=== PATIENT | male | born 1950 | race Caucasian/White ===

== ENCOUNTER 2017-10-16 09:49 | Inpatient (IN) | payer OTHER ==
--- NOTE | 2017-10-01 14:18 | PAT Medication Instructions ---
Service Date Oct 01, 2017. Current Home Medication List Ascorbic Acid (Vitamin C), 500 MG PO QPM Tbvrtfvdfgk-Gwtfvcxumsn-Xnd C- (Glucosamine Chondroitin), 1 TAB PO QPM Multivitamin (Multivitamin), 1 TAB PO noon Naproxen (Naprosyn), 500 MG PO BID Medication Instructions For Your Scheduled Surgery - Check with surgeon for instructions: Naproxen (Naprosyn), 500 MG PO BID - Hold the following medications 2 weeks prior to surgery: Osbyzdbtyvr-Ybkcvsoqixp-Beg C- (Glucosamine Chondroitin), 1 TAB PO QPM - Hold the following medications the morning of surgery: Multivitamin (Multivitamin), 1 TAB PO noon - Take the following medications as scheduled the night before surgery: Ascorbic Acid (Vitamin C), 500 MG PO QPM If you have any questions please call us at [phone] or [phone] or [phone]
[2017-10-01 15:05] LABS: BASO % 0.7 %; BASO ABS # 0.06 K/uL (0-0.2); COMPLETE YES; EOS % 1.3 %; HEMATOCRIT 43.7 % (42-52); IG% 0.3 %; LYMPH % 27.1 %; LYMPH ABS # 2.33 K/uL (1.2-3.4); MEAN CORPUSCULAR HEMOGLOBIN 30.3 pg (25-34); MEAN CORPUSCULAR HGB CONC 34.1 g/dl (32-36); MONO % 7.6 %; PLATELET COUNT 280 K/uL (130-400); RED BLOOD COUNT 4.91 M/uL (4.7-6.1); WHITE BLOOD COUNT 8.59 K/uL (4.8-10.8)
[2017-10-01 15:12] LABS: BLOOD UREA NITROGEN 15 mg/dl (7-18); BUN/CREATININE RATIO 16.1 (10-20); CALCIUM 9.5 mg/dl (8.5-10.1); CARBON DIOXIDE 26 mmol/L (21-32); CHLORIDE 106 mmol/L (98-107); CREATININE 0.92 mg/dl (0.60-1.40); GLUCOSE 88 mg/dl (70-99); POTASSIUM 4.4 mmol/L (3.5-5.1); SODIUM 139 mmol/L (136-145)
[2017-10-01 15:20] LABS: URINE APPEARANCE CLEAR (CLEAR); URINE BILIRUBIN NEG (NEG); URINE COLOR YELLOW; URINE NITRITE NEG (NEG); URINE SPECIFIC GRAVITY 1.025 (1.000-1.030); UROBILINOGEN NEG (NEG)
[2017-10-01 15:21] LABS: INR 0.9 (0.9-1.1); PARTIAL THROMBOPLASTIN RATIO 0.9
[2017-10-01 15:21] LABS: MANUAL MICROSCOPIC REQUIRED? NO; REVIEW REQ? NO
--- NOTE | 2017-10-14 17:28 | HISTORY & PHYSICAL EXAMINATION ---
DATE OF ADMISSION: 10/16/2017 CHIEF COMPLAINT: Left knee pain. HISTORY OF PRESENT ILLNESS: The patient is a 67-year-old gentleman with known osteoarthritis about his bilateral knees, left worse than right. He has had multiple corticosteroid injections in the past. 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 Due to ongoing pain and disability with activities of daily living, he now desires to proceed with left total knee arthroplasty. PAST MEDICAL HISTORY: Denies. PAST SURGICAL HISTORY: Hernia repair. MEDICATIONS: Naproxen daily. ALLERGIES: AMPICILLIN CAUSES A RASH. SOCIAL HISTORY: He states weekly alcohol use. REVIEW OF SYSTEMS: Noncontributory. PHYSICAL EXAMINATION: GENERAL: Well-nourished, well-developed male who appears his stated age. HEENT: Normocephalic, atraumatic, extraocular movements intact, oropharynx pink and moist. NECK: Supple without adenopathy. LUNGS: Clear to auscultation bilaterally. HEART: Regular rate and rhythm. ABDOMEN: Soft, nontender, nondistended. EXTREMITIES: The upper extremities are within normal limits. The left knee has a slight varus alignment. His range of motion is approximately -10 degrees to 110 degrees. He complains primarily of medial compartment pain. He has crepitus with range of motion. X-RAYS: X-rays were reviewed. He has a varus aligned knee. He has severe tricompartmental disease with near complete loss of the medial joint space. There are large osteophytes about the medial and lateral joint compartments as well as the patellofemoral compartment. ASSESSMENT: Left knee degenerative joint disease. PLAN: Risks versus benefits were discussed, consent was obtained. The patient's primary care physician is Juan Jose Upton MD from [facility]. We will proceed with left total knee arthroplasty as indicated.
[2017-10-16] VITALS (8 sets, daily range): BP systolic 102–150; BP diastolic 60–92; PULSE 86–106; TEMP 36.4–36.7; O2SAT 93–97; Ht 188 cm; Wt 106.4 kg
[~2017-10-16] VITALS: Ht 188 cm; Wt 106.4 kg
--- NOTE | 2017-10-16 07:20 | History & Physical Bridge Note ---
H&P Re-Evaluation Bridge Note: I have examined the patient, reviewed the History & Physical and in the interval since the performance of the History & Physical I have noted the following changes of clinical significance: No changes noted
[~2017-10-16 09:49] MED LIST: ACETAMINOPHEN 500 MG TAB PO SCH; ASCO1CAP3 PO; ATROPINE SULFATE 0.1 MG/ML 5ML SYR IV PRN; BUPIVACAINE 0.25% 30 ML VIAL ONE; BUPIVACAINE 0.5 % 5 MG/1 ML PF 10ML VIAL ONE; CEFAZOLIN 2000MG IV PUSH 10 ML IV SCH; CLINDAMYCIN 600 MG/54 ML D5W 54 ML IV SCH; CeleBREX 200 MG CAP PO SCH; DEXAMETHASONE 4 MG TAB PO SCH; EpHEDrine SULFATE INJ 50 MG/ML AMP IV PRN; FAMOTIDINE 20 MG TAB PO SCH; FENTANYL CITRATE INJ 50 MCG/1 ML 2 ML VIAL IV PRN; GABAPENTIN 300 MG CAP PO SCH; GLUCTAB7 PO; HYDROmorphone INJ 1 MG/ML SYR IV PRN; LABETALOL HCL IV 5 MG/ML 20ML IV PRN; LACTATED RINGER'S 1000ML 1,000 ML IV SCH; LACTATED RINGER'S 1000ML 500 ML IV ONE; LACTATED RINGER'S 1000ML IV SCH; METOCLOPRAMIDE HCL 10 MG TAB PO SCH; MULT-506 PO; NAPR-1169 PO; ONDANSETRON INJ 2 MG/ML 2 ML VIAL IV PRN; PHENYLEPHRINE 100MCG/ML 5ML SYR IV PRN; PROMETHAZINE HCL INJ 12.5 MG in SODIUM CHLORIDE 0.9% 50ML 50 ML IV PRN; ROPIVACAINE 5MG/ML 30 ML 150 MG, BUPIVACAINE 0.5% MPF INJ 30 ML, EpINEphrine HCL INJ 0.... INFIL SCH
[2017-10-16] MEDS ORDERED: MIDAZOLAM HCL 1 MG/ML 2ML VIAL ONE ×2 (11:10→12:53)
[2017-10-16] MEDS ORDERED: ORTHO JOINT ANESTHETIC ONE (11:48)
[2017-10-16] MEDS ORDERED: POVIDONE-IODINE OP SOLN 30 ML BTL ONE (11:49)
[2017-10-16] MEDS ORDERED: BACITRACIN 50000 UNIT VIAL ONE (11:49)
[2017-10-16] MEDS: TRANEXAMIC ACID INJ 1,000 MG in SYRINGE 0 ML IV SCH ×2 (12:10→16:09)
[2017-10-16] MEDS ORDERED: PROPOFOL IV EMULSION 10 MG/ML 20 ML VIAL IV ONE (14:06)
--- NOTE | 2017-10-16 14:23 | OPERATIVE REPORT ---
DATE OF OPERATION: 10/16/2017 PREOPERATIVE DIAGNOSIS: Degenerative joint disease left knee. POSTOPERATIVE DIAGNOSIS: Degenerative joint disease left knee with multiple large loose bodies and incompetence of the medial collateral ligament. PROCEDURE: Constrained right total knee arthroplasty. SURGEON: Dr. aDiley. RESERVE OFFICER: Jono Crockett PA-C. ANESTHESIA: Spinal. COMPLICATIONS: None. OPERATION AND FINDINGS: DESCRIPTION OF PROCEDURE: Following induction of adequate spinal anesthesia, the patient's right leg was prepped and draped in usual sterile manner. Limb was exsanguinated with an Esmarch bandage, tourniquet inflated to 350 mmHg. A longitudinal incision was made anteriorly. Subcutaneous tissue was sharply dissected. Electrocautery was used for hemostasis. Median parapatellar was made. Patella was everted and the knee was flexed. Large osteophytes were noted about the patella. These were removed. Fat pad was removed and the Bovie was used to clear the medial metaphysis of the tibia of soft tissue. The extramedullary alignment guide was placed anteriorly and adjusted and pinned in position. The oscillating saw was used to produce tibial cut. Tibial component was removed. Following this, attention was turned to the femur where a drill was used to gain access to the femoral canal. Intramedullary alignment guide was placed and the distal femoral cuts were made. The femur was measured and a size 7 femoral component was chosen the size to be used. This chamfer cutting guide was impacted in position and the chamfers were cut. There was no notching. These bone fragments were removed and the guide was removed and the notch cutting guide was placed. This bone fragment was removed as well. Next, attention was turned to the posterior aspect of the knee where a lamina contact lens molder was used to gain access and a meniscal clamp and knife were utilized to perform both medial and lateral meniscectomies. Upon removal of posterior bone 3 large osteochondral loose bodies were liberated from the posterior portion of the knee and these were removed. The distal femoral trial was impacted into position and decision was made to drill the peg holes to further stabilize this large femur. Next, the tibia was subluxed anteriorly and a size 7 tibia was chosen the size to be used. The tibia was reduced with a size 9 poly and the medial collateral ligament was noted to be quite lax. The decision was made to place the stem on the tibial component and proceed to a constrained tibial poly. The trials were removed and additional palpation revealed an osseous loose body in the soft tissues medially. These soft tissues were longitudinally split and the loose body was shelled out. The patella was reamed with the appropriate reaming guide and drill holes were placed and a 39 patella was chosen the size to be used. Knee was taken through a full range of motion and there was found to be no subluxation of the patella. The trials were all removed. The posterior knee was injected medially and laterally with the joint mix and bone plug was removed to plug the femoral canal, which was performed. An additional joint mix was injected in the pericapsular area and pulsatile irrigation was used to thoroughly cleanse the joint. Following this, the knee ends were thoroughly dried and cement was mixed and after assembly of the femoral and tibial components the components were cemented into position. All excess cement was removed. The patellar clamp was placed over the patella ____ and cement was removed here as well. After cement hardened, the remainder of the joint mix was injected throughout the joint. A Betadine soak was carried out and a final irrigation was carried out with pulsatile irrigation. Hemovac drain was placed. The wound was closed with 0 Dexon, 2-0 Polysorb and ZipLine. Silverlon dressing was applied as well as sterile Webril and double length Douglas. The patient tolerated the procedure well. Mr. Crockett was essential through all portions of the case including positioning, prepping, draping, compounding assistant, wound closure and dressing application. I attest to the content of the Intraoperative Record and any orders documented therein. Any exception s are noted below.
[2017-10-16] MEDS ORDERED: TRAMADOL HCL 50 MG TAB PO PRN (14:30)
[2017-10-16] MEDS ORDERED: MoRPHine SULFATE 2 MG/ML CARP IV PRN ×2 (14:30→15:00)
[2017-10-16] MEDS ORDERED: ALUMINUM/MAGNESIUM/SIMETH (MAALOX MAX) 30 ML UDC PO PRN (14:30)
[2017-10-16] MEDS ORDERED: BISACODYL 10 MG SUPP PR PRN (14:30)
[2017-10-16] MEDS ORDERED: OXYCODONE HCL IR 5 MG TAB (IMMEDIATE RELEASE) PO PRN (14:30)
[2017-10-16] MEDS ORDERED: ONDANSETRON INJ 2 MG/ML 2 ML VIAL IV PRN (14:30)
[2017-10-16] MEDS ORDERED: MAGNESIUM HYDROXIDE SUSP 30 ML UDC PO PRN (14:30)
[2017-10-16] MEDS ORDERED: CEFAZOLIN IV 2,000 MG in DEXTROSE 5% 50ML 50 ML IV SCH (14:30)
[2017-10-16] MEDS ORDERED: MoRPHine SULFATE 10 MG/ML CARP/VIAL IV PRN (15:00)
[2017-10-16] MEDS ORDERED: MoRPHine SULFATE 4 MG/ML 1 ML CARP\\VIAL IV PRN (15:00)
--- NOTE | 2017-10-16 15:25 | Anesthesiology Progress Note ---
Anesthesia Post Op Note Date & Time Oct 16, 2017 at 15:25 Vital Signs Pain Intensity: 0 Vital Signs Past 12 Hours Date Time Temp Pulse Resp B/P (MAP) Pulse Ox O2 Delivery O2 Flow Rate FiO2 10/16/17 15:16 36.5 119/77 10/16/17 15:15 89 18 10/16/17 15:15 92 18 97 10/16/17 15:10 85 17 10/16/17 15:10 90 17 124/85 96 10/16/17 15:06 114/80 10/16/17 15:05 88 18 96 10/16/17 15:05 88 18 10/16/17 15:01 124/82 10/16/17 15:00 78 13 10/16/17 15:00 87 13 96 10/16/17 14:56 123/83 10/16/17 14:55 85 13 97 10/16/17 14:55 86 13 10/16/17 14:51 124/84 10/16/17 14:50 88 10 97 10/16/17 14:50 79 10 10/16/17 14:46 112/77 10/16/17 14:45 90 17 97 10/16/17 14:45 89 17 10/16/17 14:41 123/82 10/16/17 14:40 88 20 96 10/16/17 14:40 88 20 10/16/17 14:36 129/90 10/16/17 14:35 89 18 96 10/16/17 14:35 86 18 10/16/17 14:31 132/89 10/16/17 14:30 92 17 10/16/17 14:30 93 17 99 10/16/17 14:27 135/86 10/16/17 14:25 36.5 86 16 105/86 99 Oxymask 7 10/16/17 10:20 36.4 101 18 150/92 96 Room Air Notes Mental Status: alert / awake / arousable, participated in evaluation Pt Amnestic to Procedure: Yes Nausea / Vomiting: adequately controlled Pain: adequately controlled Airway Patency, RR, SpO2: stable & adequate BP & HR: stable & adequate Hydration State: stable & adequate Neuraxial Anesthesia: was administered, sensory block is resolving Anesthetic Complications: no major complications apparent
--- NOTE | 2017-10-16 15:33 | DIAGNOSTIC IMAGING REPORT ---
L KNEE 1 OR 2 VIEWS ROUTINE HISTORY: 67 years-old Male s/p TKA status post right knee total joint arthroplasty. Degenerative joint disease. COMPARISON: None available TECHNIQUE: 2 views of the left knee FINDINGS: Postoperative changes compatible with placement of a hinged left knee total joint arthroplasty. Small bone fragments are noted about the knee both medially and laterally. Dystrophic appearing calcifications seen within the region of the distal quadriceps tendon. Prior patellar resurfacing. Expected postsurgical soft tissue swelling and deep tissue air about the knee with drainage in place. No complications identified. IMPRESSION: Status post left knee total joint arthroplasty and patellar resurfacing without complication identified. The above report was generated using voice recognition software. It may contain grammatical, syntax or spelling errors. Electronically signed by: Fahad Burris M.D. 10/16/2017 3:32 PM Dictated Date/Time: 10/16/2017 3:23 PM
[2017-10-16] MEDS: KETOROLAC TROMETHAMINE 30 MG/ML VIAL IV. SCH ×2 (16:46→22:11)
[2017-10-16] MEDS: FERROUS GLUCONATE 324 MG TAB PO SCH (17:47)
[2017-10-16] MEDS: D5W AND 1/2NSS + 20MEQ KCL 1,000 ML IV SCH (20:28)
[2017-10-16] MEDS: CEFAZOLIN IV 2,000 MG in SYRINGE 0 ML IV SCH (20:28)
[2017-10-16] MEDS: DOCUSATE SODIUM 100 MG CAP PO SCH (20:34)
[2017-10-16] MEDS: SENNA 8.6 MG TAB PO SCH (20:35)
[2017-10-16] MEDS: ASPIRIN 81 MG ECTAB PO SCH (20:36)
[2017-10-16] MEDS: ACETAMINOPHEN 500 MG TAB PO SCH (22:11)
[2017-10-17] MEDS: D5W AND 1/2NSS + 20MEQ KCL 1,000 ML IV SCH (01:50)
[2017-10-17 03:40] VITALS: BP 113/74; PULSE 84; TEMP 36.6; O2SAT 96
[2017-10-17] MEDS: CEFAZOLIN IV 2,000 MG in SYRINGE 0 ML IV SCH (03:59)
[2017-10-17] MEDS: KETOROLAC TROMETHAMINE 30 MG/ML VIAL IV. SCH ×2 (04:00→10:00)
[2017-10-17] MEDS: ACETAMINOPHEN 500 MG TAB PO SCH ×3 (05:44→20:44)
[2017-10-17 06:22] LABS: HEMATOCRIT 38.1 % (42-52); MEAN CELL VOLUME 89.6 fL (80-100); MEAN CORPUSCULAR HEMOGLOBIN 28.7 pg (25-34); MEAN PLATELET VOLUME 9.6 fL (7.4-10.4); PLATELET COUNT 266 K/uL (130-400); RED BLOOD COUNT 4.25 M/uL (4.7-6.1); WHITE BLOOD COUNT 19.05 K/uL (4.8-10.8)
[2017-10-17 07:00] LABS: CALCIUM 8.6 mg/dl (8.5-10.1); CREATININE 1.12 mg/dl (0.60-1.40); POTASSIUM 4.2 mmol/L (3.5-5.1)
--- NOTE | 2017-10-17 07:45 | Orthopedic Progress Note ---
Orthopedic Progress Note Date of Service Oct 17, 2017. Subjective Post OP Day: 1 Reports: feeling well Objective N/V intact, dressing C/D/I (Hemovac in place), toes mobile Date Time Temp Pulse Resp B/P (MAP) Pulse Ox O2 Delivery O2 Flow Rate FiO2 10/17/17 03:40 36.6 84 16 113/74 (87) 96 Room Air 10/16/17 23:15 Room Air 10/16/17 23:07 36.6 86 16 102/60 (74) 96 Room Air 10/16/17 21:31 95 Room Air 10/16/17 19:06 36.4 98 18 111/74 (86) 97 Nasal Cannula 2.0 10/16/17 17:39 36.7 103 18 118/75 (89) 96 Nasal Cannula 2.0 10/16/17 16:31 36.5 106 18 130/78 (95) 97 Nasal Cannula 2.0 10/16/17 16:00 36.4 93 18 115/74 (88) 96 Nasal Cannula 2.0 10/16/17 16:00 Nasal Cannula 2.0 10/16/17 15:30 Nasal Cannula 2.0 Oxymask 10/16/17 15:30 36.7 91 16 132/83 (99) 93 Room Air 10/16/17 15:16 36.5 119/77 10/16/17 15:15 89 18 10/16/17 15:15 92 18 97 10/16/17 15:10 85 17 10/16/17 15:10 90 17 124/85 96 10/16/17 15:06 114/80 10/16/17 15:05 88 18 96 10/16/17 15:05 88 18 10/16/17 15:01 124/82 10/16/17 15:00 78 13 10/16/17 15:00 87 13 96 10/16/17 14:56 123/83 10/16/17 14:55 85 13 97 10/16/17 14:55 86 13 10/16/17 14:51 124/84 10/16/17 14:50 88 10 97 10/16/17 14:50 79 10 10/16/17 14:46 112/77 10/16/17 14:45 90 17 97 10/16/17 14:45 89 17 10/16/17 14:41 123/82 10/16/17 14:40 88 20 96 10/16/17 14:40 88 20 10/16/17 14:36 129/90 10/16/17 14:35 89 18 96 10/16/17 14:35 86 18 10/16/17 14:31 132/89 10/16/17 14:30 92 17 10/16/17 14:30 93 17 99 10/16/17 14:27 135/86 10/16/17 14:25 36.5 86 16 105/86 99 Oxymask 7 10/16/17 10:20 36.4 101 18 150/92 96 Room Air Laboratory Results 24 Hours: Test 10/17/17 06:00 Hematocrit 38.1 % Hemoglobin 12.2 g/dL Assessment & Plan Assessment: 67 yo male stable POD #1 s/p left TKA Plan: 1. Med management 2. DVT prophylaxis- ASA, SCDs 3. PT/OT 4. D/C planning- home w/ OPPT
[2017-10-17] MEDS ORDERED: ASPEC81 PO (07:47)
[2017-10-17] MEDS ORDERED: RXC5 PO (07:47)
[2017-10-17] MEDS ORDERED: ONDA8TAB12 PO (07:47)
[2017-10-17] MEDS ORDERED: CLB200 PO (07:47)
[2017-10-17] MEDS ORDERED: ACET-24 PO (07:47)
--- NOTE | 2017-10-17 07:48 | Discharge Instructions ---
Discharge Instructions Date of Service Oct 17, 2017. Admission Reason for Admission: Left Knee Osteoarthritis Discharge Discharge Diagnosis / Problem: Left knee arthritis Discharge Goals Goal(s): Decrease discomfort, Improve function Activity Recommendations Activity Limitations: as noted below Weightbearing Status: Left weightbearing (as tolerated) . Instructions / Follow-Up Instructions / Follow-Up ACTIVITY RECOMMENDATIONS: SELF CARE INSTRUCTIONS AFTER TOTAL KNEE REPLACEMENT A. You may need to continue a physical therapy program after discharge from the hospital. There are several options available to you. Your doctor will assist you in selecting the best one for you. 1. An out-patient facility 2 to 3 times a week for therapy or home therapy. 2. Continue working on all exercises taught to you in the hospital. Your goals should be to increase bending of your knee to 90 degrees and beyond and to fully straighten your knee. B. You may progress at your own pace from walking with a walker or crutches to a cane; then to no assistive devices. C. Make walking a part of your daily routine. Be up as much as comfortable with rest periods throughout the day. Rest with leg elevation is very important. Use the ice wrap frequently for the first 3-4 weeks. D. There are no restrictions on activities. You may ride in a car, shop, participate in client liaison and all social activities. E. Wear the long elastic stockings (RADHA hose) 20 hours a day for 2 weeks after surgery. They can be removed several times a day for laundering and for a bath. F. You may shower, no tub baths until cleared by your doctor. SPECIAL CARE INSTRUCTIONS: VERY IMPORTANT TO READ AND REVIEW A. There are a few signs you need to watch for after you are home. Call [facility] if you notice any of the followin. Increased severe knee pain. Some pain is expected especially when you exercise. 2. Increased swelling in your leg or knee; pain or swelling of the calf muscle in either lower leg. 3. Any fluid drainage from the incision. 4. Shortness of breath or chest pain. B. Please call [facility] at if you have any concerns or questions about your operation or recovery. The doctor or his nurse will return your call promptly. C. You must take antibiotics before dental work, bladder, bowel or other surgery. Your doctor will provide you with a permanent care to carry describing this precaution. IMPORTANT: * REMEMBER TO TAKE ASPIRIN, 81 MG, TWICE DAILY FOR 4 WEEKS UNLESS OTHERWISE DIRECTED. THIS IS YOUR BLOOD THINNER. * HIGH RISK PATIENTS MAY BE PRESCRIBED A STRONGER BLOOD THINNER. THIS WILL BE PROVIDED AT DISCHARGE. * CALL IF INCREASED PAIN, REDNESS, DRAINAGE OR FEVER GREATER THAT 101. * WEAR RADHA HOSE 20 HOURS PER DAY FOR 2 WEEKS. Silverlon- This is a large adhesive bandage that contains silver ions. This helps your incision heal by fighting off bacteria and protecting it from the outside environment. You are permitted to shower with this dressing. This will remain on your incision for 7 days and then should be removed. Some visible blood or drainage through the dressing window is normal. If there is significant drainage or leaking noted before the 7 days notify your doctor's office immediately. Once removed, keep incision clean and dry. If there is any drainage or redness noted, please call your surgeon. FOLLOW UP VISIT: If appointment is not already scheduled: Please call [facility] to make a follow-up appointment for 2 weeks after your surgery at . Current Hospital Diet Patient's current hospital diet: Regular Diet Discharge Diet Recommended Diet: Regular Diet Procedures Procedures Performed: Left Total Knee Arthroplasty Pending Studies Studies pending at discharge: no Medical Emergencies . Who to Call and When: Medical Emergencies: If at any time you feel your situation is an emergency, please call 911 immediately. . Non-Emergent Contact Non-Emergency issues call your: Surgeon Call Non-Emergent contact if: temperature is above 101.5, your pain is not controlled, wound has increased drainage, wound has increased redness . "Provider Documentation" section prepared by Young Young PA-C. . VTE Core Measure Inpt VTE Proph given/why not?: Other Anticoagulation (ASA), T.E.D. Stockings, SCD's [place] Drug Monitoring Program Search Results: patient reviewed within database, no issues identified
[2017-10-17 08:03] VITALS: BP 130/90; PULSE 78; TEMP 36.6; O2SAT 98
[2017-10-17] MEDS: FERROUS GLUCONATE 324 MG TAB PO SCH ×3 (08:32→18:00)
[2017-10-17] MEDS: ASPIRIN 81 MG ECTAB PO SCH ×2 (08:32→20:41)
[2017-10-17] MEDS: PANTOprazole SOD 40 MG TAB PO SCH (08:32)
[2017-10-17] MEDS: MULTIVITAMIN TAB PO SCH (08:33)
[2017-10-17] MEDS: DOCUSATE SODIUM 100 MG CAP PO SCH ×2 (08:33→20:42)
[2017-10-17 09:35] VITALS: O2SAT 98
[2017-10-17 12:03] VITALS: BP 130/70; PULSE 72; TEMP 36.7; O2SAT 98
[2017-10-17 15:29] VITALS: BP 130/84; PULSE 77; TEMP 36.5; O2SAT 97
[2017-10-17] MEDS: SENNA 8.6 MG TAB PO SCH (20:42)
[2017-10-17] MEDS: CeleBREX 200 MG CAP PO SCH (20:43)
[2017-10-17 23:18] VITALS: BP 127/64; PULSE 82; TEMP 36.8; O2SAT 98
[2017-10-18] MEDS: ACETAMINOPHEN 500 MG TAB PO SCH (05:41)
[2017-10-18 06:07] VITALS: BP 146/80; PULSE 88; TEMP 36.7; O2SAT 99
[2017-10-18] MEDS: FERROUS GLUCONATE 324 MG TAB PO SCH (07:52)
[2017-10-18] MEDS: PANTOprazole SOD 40 MG TAB PO SCH (07:52)
[2017-10-18] MEDS: ASPIRIN 81 MG ECTAB PO SCH (07:52)
[2017-10-18] MEDS: CeleBREX 200 MG CAP PO SCH (07:52)
[2017-10-18] MEDS: MULTIVITAMIN TAB PO SCH (07:52)
[2017-10-18] MEDS: DOCUSATE SODIUM 100 MG CAP PO SCH (07:52)
--- NOTE | 2017-10-18 08:00 | Orthopedic Progress Note ---
Orthopedic Progress Note Date of Service Oct 18, 2017. Subjective Post OP Day: 2 Reports: feeling well, Denies: chest pain, SOB, nausea / vomiting, light headedness, calf pain Objective calves soft nontender, N/V intact, capillary refill less than 2 sec., incision C /D/I, A&O x3, toes mobile Date Time Temp Pulse Resp B/P (MAP) Pulse Ox O2 Delivery O2 Flow Rate FiO2 10/18/17 06:07 36.7 88 16 146/80 (102) 99 Room Air 10/18/17 00:10 Room Air 10/17/17 23:18 36.8 82 20 127/64 (85) 98 Room Air 10/17/17 15:35 Room Air 10/17/17 15:29 36.5 77 16 130/84 (99) 97 Room Air 10/17/17 12:03 36.7 72 14 130/70 (90) 98 Room Air 10/17/17 09:35 98 Room Air 10/17/17 08:03 36.6 78 12 130/90 (103) 98 Room Air Assessment & Plan Assessment: 67 yo male stable POD #2 s/p left TKA Plan: 1. Med management 2. DVT prophylaxis- ASA, SCDs 3. PT/OT 4. D/C planning- home w/ OPPT. DC HOME TODAY AFTER PT
[2017-10-18 09:41] VITALS: BP 146/80; PULSE 88; TEMP 36.7; O2SAT 99
--- NOTE | 2017-10-20 13:51 | DISCHARGE SUMMARY ---
DISCHARGE DIAGNOSIS: Degenerative joint disease left knee. CONSULTATIONS: None. COMPLICATIONS: None. PROCEDURES: Left total knee arthroplasty performed by Dr. Dailey on 10/16/2017. BRIEF HISTORY: As dictated in history and physical. HOSPITAL SUMMARY: The patient was admitted on the above-noted date and had the above-noted surgery performed which he tolerated well. On the first postoperative day, he was feeling well and had no complaints. Dressings were clean, dry and intact. Neurovascularly intact. Toes were mobile. Vital signs were stable. He was afebrile. Hemoglobin was 12.2 and he was started on physical therapy protocol and continued on DVT prophylaxis and pain management. By his second postoperative day, he was feeling well and had no complaints. Calves were soft and nontender, neurovascularly intact. Incision was benign. Toes were mobile. Vital signs were stable and it was felt he could be discharged to home with outpatient PT. For further review, please see chart. LABORATORY AND X-RAY DATA: As per chart. DISCHARGE INSTRUCTIONS: The patient was discharged to home on 10/18/2017 in stable condition. DIET: Regular. ACTIVITY: Weightbearing as tolerated left lower extremity. Follow TK instruction sheets and special care instructions as noted. Follow up with Dr. Dailey in 2 weeks. The patient to call for appointment if one has not been made for you. DISCHARGE MEDICATIONS: Acetaminophen 1000 mg p.o. q. 8 hours, aspirin 81 mg p.o. b.i.d., Celebrex 200 mg p.o. b.i.d., Zofran 8 mg p.o. q. 8 hours p.r.n., oxycodone 5-10 mg p.o. q. 4 hours p.r.n. Resume home meds as listed in discharge instructions and stop taking naproxen.
== END 2017-10-18 11:17 | disposition home or self-care (01) | DRG 470 ==
LOC: C.ACU 09:49 → C.3E 12:07 → ENRESERV 15:08
PROC: 0SRU0J9 Replacement of Left Knee Joint, Femoral Surface with Synthetic Substitute, Cemented, Open Approach (ICD-10-PCS; principal; 2017-10-16 12:45)
DX: M17.12 Unilateral primary osteoarthritis, left knee (principal)

== ENCOUNTER 2018-01-08 07:33 | Inpatient (IN) | payer OTHER ==
[2017-11-26 11:45] VITALS: BMI 29.0
--- NOTE | 2017-11-26 12:19 | PAT Medication Instructions ---
Service Date Nov 26, 2017. Current Home Medication List Ascorbic Acid (Vitamin C), 500 MG PO QPM Multivitamin (Multivitamin), 1 TAB PO noon Naproxen (Naprosyn), Unknown Dose PO BID Medication Instructions For Your Scheduled Surgery - Check with surgeon for instructions: Naproxen (Naprosyn), Unknown Dose PO BID - Hold the following medications the morning of surgery: Multivitamin (Multivitamin), 1 TAB PO noon - Take the following medications as scheduled the night before surgery: Ascorbic Acid (Vitamin C), 500 MG PO QPM If you have any questions please call us at [phone] or [phone] or [phone]
[2017-11-26 12:41] LABS: BASO % 0.5 %; BASO ABS # 0.05 K/uL (0-0.2); EOS % 1.3 %; EOS ABS # 0.12 K/uL (0-0.5); HEMATOCRIT 42.1 % (42-52); HEMOGLOBIN 13.5 g/dL (14.0-18.0); IG# 0.03 K/uL (0.00-0.02); LYMPH % 19.7 %; LYMPH ABS # 1.81 K/uL (1.2-3.4); MEAN CORPUSCULAR HEMOGLOBIN 28.5 pg (25-34); MEAN CORPUSCULAR HGB CONC 32.1 g/dl (32-36); MEAN PLATELET VOLUME 9.8 fL (7.4-10.4); MONO ABS # 0.74 K/uL (0.11-0.59); NEUT % 70.2 %; NEUT ABS # 6.45 K/uL (1.4-6.5); PLATELET COUNT 341 K/uL (130-400); RED CELL DISTRIBUTION WIDTH SD 46.1 fL (36.4-46.3)
[2017-11-26 12:52] LABS: PTT PATIENT 24.5 SECONDS (21.0-31.0)
--- NOTE | 2017-11-26 13:11 | DIAGNOSTIC IMAGING REPORT ---
CHEST 2 VIEWS ROUTINE HISTORY: Preop. COMPARISON: None. FINDINGS: The lungs are clear. Cardiac silhouette is normal in size. No pleural effusions. No pneumothorax. Old, healed left clavicle fracture. IMPRESSION: No acute process. Electronically signed by: Yariel Newton M.D. 11/26/2017 1:09 PM Dictated Date/Time: 11/26/2017 1:04 PM
[2017-11-26 13:15] LABS: HEMOGLOBIN A1C 4.9 % (4.5-5.6)
[2017-11-26 14:19] LABS: ALBUMIN 3.6 gm/dl (3.4-5.0); CALCIUM 9.1 mg/dl (8.5-10.1); CREATININE 0.93 mg/dl (0.60-1.40); POTASSIUM 4.4 mmol/L (3.5-5.1)
--- NOTE | 2017-12-17 10:51 | HISTORY & PHYSICAL EXAMINATION ---
DATE OF ADMISSION: 01/08/2018 CHIEF COMPLAINT: Right knee pain. HISTORY OF PRESENT ILLNESS: Mr. Terrell is a 67-year-old male with a 15-year history of right knee pain. The patient rates his pain as 7/10. He has pain with his daily activities. He has limited standing and walking tolerance. Pain is worse with weightbearing. The patient has had injections, bracing, NSAIDs and PT without relief. He has failed conservative treatment and is scheduled for right knee replacement. PAST MEDICAL HISTORY: Denies heart disease, diabetes or DVT. PAST SURGICAL HISTORY: Left TKA. SOCIAL HISTORY: The patient drinks 4-5 drinks per week. He denies tobacco use. He lives in a single story home. He is and retired. FAMILY HISTORY: Negative for DVT. MEDICATIONS: Multivitamin, vitamin C, glucosamine chondroitin and naproxen. ALLERGIES: AMPICILLIN CAUSES HIVES. REVIEW OF SYSTEMS: See HPI. Ten other systems reviewed, all negative. PHYSICAL EXAMINATION: VITAL SIGNS: Height 6 foot 2 inches, weight 230 pounds. BMI is 30. GENERAL: This is a well-developed, well-nourished male who is alert and oriented x3. Mood and affect are appropriate. HEENT: Normocephalic, atraumatic. Mucous membranes are moist and intact. NECK: Supple without lymphadenopathy. HEART: Regular rate and rhythm without murmurs, rubs or gallops. LUNGS: Clear to auscultation without wheezes or rhonchi. ABDOMEN: Soft and nontender. Bowel sounds are equal and active. EXTREMITIES: No ecchymosis, redness or warmth. Thigh and calf are soft and nontender. He has varus deformity. Range of motion is from 10 to about 115 degrees. He has +2 laxity. He is neurovascularly intact. He has no distal edema. X-RAY EXAMINATION: AP and lateral views show joint space narrowing and osteophyte formation. IMPRESSION: Degenerative joint disease, right knee. PLAN: The patient will be admitted for a right total knee arthroplasty. We will plan on aspirin for DVT prophylaxis. The patient is going to do outpatient physical therapy at [facility].
[~2018-01-08] VITALS: Ht 188 cm; Wt 104.7 kg
[2018-01-08] VITALS (8 sets, daily range): BP systolic 109–158; BP diastolic 67–99; PULSE 94–108; TEMP 36.4–37; O2SAT 93–98; Ht 188 cm; Wt 104.7 kg
[2018-01-08] MEDS: TRANEXAMIC ACID INJ 1,000 MG in SYRINGE 0 ML IV SCH ×2 (06:30→09:08)
[~2018-01-08 07:33] MED LIST changes: -ATROPINE SULFATE 0.1 MG/ML 5ML SYR IV PRN; -CEFAZOLIN 2000MG IV PUSH 10 ML IV SCH; +CEFAZOLIN 2000MG IV PUSH 15 ML IV SCH; -CLINDAMYCIN 600 MG/54 ML D5W 54 ML IV SCH; -EpHEDrine SULFATE INJ 50 MG/ML AMP IV PRN; -FENTANYL CITRATE INJ 50 MCG/1 ML 2 ML VIAL IV PRN; -GLUCTAB7 PO; -HYDROmorphone INJ 1 MG/ML SYR IV PRN; -LABETALOL HCL IV 5 MG/ML 20ML IV PRN; -LACTATED RINGER'S 1000ML 500 ML IV ONE; +LACTATED RINGER'S 1000ML 500 ML IV SCH; -NAPR-1169 PO; +NAPR1TAB48 PO; -ONDANSETRON INJ 2 MG/ML 2 ML VIAL IV PRN; -PHENYLEPHRINE 100MCG/ML 5ML SYR IV PRN; -PROMETHAZINE HCL INJ 12.5 MG in SODIUM CHLORIDE 0.9% 50ML 50 ML IV PRN
[2018-01-08] MEDS ORDERED: MIDAZOLAM HCL 1 MG/ML 2ML VIAL ONE (07:40)
[2018-01-08] MEDS ORDERED: FENTANYL CITRATE INJ 50 MCG/1 ML 2 ML VIAL ONE (07:40)
[2018-01-08] MEDS ORDERED: EpHEDrine SULFATE 50MG/5ML SYR ONE (07:49)
[2018-01-08] MEDS ORDERED: PROPOFOL IV EMULSION 10 MG/ML 20 ML VIAL IV ONE (07:49)
[2018-01-08] MEDS ORDERED: LIDOCAINE HCL 2% 2 ML VIAL (20MG/ML) ONE (07:49)
[2018-01-08] MEDS ORDERED: PHENYLEPHRINE 100MCG/ML 5ML SYR ONE (07:49)
[2018-01-08] MEDS ORDERED: NAPR-1169 PO (07:54)
[2018-01-08] MEDS ORDERED: ONDANSETRON INJ 2 MG/ML 2 ML VIAL IV PRN ×2 (08:30→11:15)
[2018-01-08] MEDS ORDERED: ATROPINE SULFATE 0.1 MG/ML 5ML SYR IV PRN (08:30)
[2018-01-08] MEDS ORDERED: EpHEDrine SULFATE INJ 50 MG/ML AMP IV PRN (08:30)
[2018-01-08] MEDS ORDERED: FENTANYL CITRATE INJ 50 MCG/1 ML 2 ML VIAL IV PRN (08:30)
[2018-01-08] MEDS ORDERED: ORTHO JOINT ANESTHETIC ONE (08:58)
[2018-01-08] MEDS ORDERED: POVIDONE-IODINE OP SOLN 30 ML BTL ONE (08:58)
[2018-01-08] MEDS ORDERED: BACITRACIN 50000 UNIT VIAL ONE (08:58)
--- NOTE | 2018-01-08 10:35 | [facility] Post Operative Brief Note ---
Immediate Operative Summary Operative Date Jan 08, 2018. Pre-Operative Diagnosis Degenerative Joint Disease, right knee Post-Operative Diagnosis Degenerative Joint Disease, right knee Procedure(s) Performed Right Total Knee Arthroplasty Surgeon Dr. Elan Dailey Automobile Mechanic Apprentice Surgeon(s) Young Young PA-C Estimated Blood Loss 10mL Findings Consistent with Post-Op Diagnosis Specimens Permanent: A. Right Knee Bone and Tissue Anesthesia Type MAC Spinal Regional Complication(s) none Disposition Accompanied Pt To Recover: no Disposition: Recovery Room / PACU
--- NOTE | 2018-01-08 10:50 | OPERATIVE REPORT ---
DATE OF OPERATION: 01/08/2018 PREOPERATIVE DIAGNOSIS: Osteoarthritis right knee. POSTOPERATIVE DIAGNOSIS: Osteoarthritis right knee. PROCEDURE: Right total knee arthroplasty. SURGEON: Dr. Dailey. INVESTMENT SPECIALIST: Young Young PA-C. ANESTHESIA: Spinal. COMPLICATIONS: None. OPERATION AND FINDINGS: Following induction of spinal anesthesia, the patient's right leg was prepped and draped in the usual sterile manner. Limb was exsanguinated with an Esmarch bandage and tourniquet was inflated to 350 mmHg. A longitudinal incision was made anteriorly. Subcutaneous tissue was sharply dissected. Electrocautery was used for hemostasis. Prepatellar bursa was incised and median parapatellar incision was performed. Patella was everted and the knee was flexed. Fat pad was removed to aid in visualization and the anterior and posterior cruciate ligaments were removed. The medial face of the tibia was cleared of soft tissue first with a Bovie and a Eisenberg elevator. This tissue was retracted posteriorly using a blunt Hohmann. A Em retractor was used to expose the synovium above on the anterior aspect of the femur and this was removed down to bone. The PSI guide was placed on the distal femur and two pins were placed anteriorly and kept in position and two additional pins were placed distally and removed. The distal femoral cutting block was placed in position and the distal femoral cut was used in the +0 setting. Next, the cutting block was removed and the 7 block was placed in the distal end of the femur. Care was taken to ensure appropriate external rotation and feeler gauge was used to ensure no notching would occur. The femoral block was centered on the distal femur and in the medial and lateral direction and was fixed using two bone screws. The gold pins were then removed. The oscillating saw was used to create the bone cuts and the distal femoral cutting block was removed and the reciprocating saw was used to further trim the femoral cuts as well as a deep in the area for the trochlear groove. Next, posterior condyle remnants were removed. Following this, a meniscal clamp and knife were utilized to remove the anterior portion of both medial and lateral meniscus. The proximal tibia PSI guide was placed into position and the proximal tibial cutting guide was screwed into position. The extra medullary alignment guide was utilized to ensure appropriate alignment. The proximal tibia was cut and the proximal tibial cutting block was removed and this bone fragment was removed. The appropriate guide was used to perform the notch cut on the distal femur and a lamina compliance monitor and a cochlear knife were utilized to finish both medial and lateral meniscectomies to remove any remnants of the posterior or anterior cruciate ligaments. Following this, the distal femoral component was impacted into position and blunt Kalyan was used to sublux the tibia anteriorly. The proximal tibia was sized and a 6 tibial tray was chosen as the size to be used. This was put into position and appropriate external rotation and a double check with extramedullary alignment guide was performed. The canal for the tibial stem was prepared first with a 17 mm drill and then the punch and a mallet and the trial tibial poly was placed. A 9 was chosen the size to be used. It was brought to extension and the patella was prepared with the patellar reamer. A 39 component was chosen the size to be used. The trial component was placed and knee was taken through a full range of motion and there was found to be no lateral subluxation of the tibia. No lateral release was required. The trials were all removed. The final components were obtained and assembled. Cement was mixed. The knee was thoroughly irrigated and the ortho mix was injected about the knee joint. The final components were cemented into position. After thoroughly suctioning and drying the bone ends, all excess cement was removed. The knee was held in extension while the cement hardened. The wound was irrigated and closed over a Hemovac drain. #1 Vicryl was used to close the extensor mechanism. Subcutaneous tissues closed using 0 Dexon. Skin was closed with josiane. Sterile dressing of Adaptic, 4 x 4's, sterile Webril, and Douglas was applied. The patient tolerated the procedure well, recovery room stable. Due to the complex nature of the procedure, the entire surgery was performed with the operational assistance of Young Young PA-C. The branch assistant, under direct supervision, was involved in the actual performance of all aspects of the surgical procedure including hemostasis, tissue retraction and incision, instrument management, patient positioning, and wound closure. I attest to the content of the Intraoperative Record and any orders documented therein. Any exception s are noted below.
[2018-01-08] MEDS ORDERED: ZOLPIDEM TARTRATE 5 MG TAB PO PRN (11:15)
[2018-01-08] MEDS ORDERED: MoRPHine SULFATE 2 MG/ML CARP IV PRN (11:15)
[2018-01-08] MEDS ORDERED: ALUMINUM/MAGNESIUM/SIMETH (MAALOX MAX) 30 ML UDC PO PRN (11:15)
[2018-01-08] MEDS ORDERED: METOCLOPRAMIDE HCL INJ 5 MG/ML 2 ML VIAL IV PRN (11:15)
[2018-01-08] MEDS ORDERED: OXYCODONE HCL IR 5 MG TAB (IMMEDIATE RELEASE) PO PRN (11:15)
[2018-01-08] MEDS ORDERED: MAGNESIUM HYDROXIDE SUSP 30 ML UDC PO PRN (11:15)
--- NOTE | 2018-01-08 11:40 | DIAGNOSTIC IMAGING REPORT ---
RIGHT KNEE 2 VIEWS CLINICAL HISTORY: Degenerative arthritis. Postoperative study. COMPARISON: None. DISCUSSION: There are postsurgical changes of a total right knee arthroplasty and patellar resurfacing. The femoral and tibial components appear well seated. There is air within soft tissues consistent with recent surgery. There is an overlying surgical drain. IMPRESSION: Postsurgical changes of a total right knee arthroplasty. Electronically signed by: Jc Bazan M.D. 01/08/2018 11:38 AM Dictated Date/Time: 01/08/2018 11:38 AM
--- NOTE | 2018-01-08 12:08 | Anesthesiology Progress Note ---
Anesthesia Post Op Note Date & Time Jan 08, 2018 at 12:08 Vital Signs Pain Intensity: 0 Vital Signs Past 12 Hours Date Time Temp Pulse Resp B/P (MAP) Pulse Ox O2 Delivery O2 Flow Rate FiO2 01/08/18 11:55 36.6 87 16 119/72 97 Nasal Cannula 2 01/08/18 11:45 89 16 118/80 94 Nasal Cannula 2 01/08/18 11:35 90 16 128/81 94 Nasal Cannula 2 01/08/18 11:25 87 16 126/79 98 Oxymask 10 01/08/18 11:16 36.8 91 16 132/82 99 Oxymask 10 01/08/18 07:50 36.7 100 18 158/99 96 Room Air Notes Mental Status: alert / awake / arousable, participated in evaluation Pt Amnestic to Procedure: Yes Nausea / Vomiting: adequately controlled Pain: adequately controlled Airway Patency, RR, SpO2: stable & adequate BP & HR: stable & adequate Hydration State: stable & adequate Neuraxial Anesthesia: was administered, sensory block is resolving Anesthetic Complications: no major complications apparent
[2018-01-08] MEDS: D5W AND 1/2NSS + 20MEQ KCL 1,000 ML IV SCH ×2 (13:44→23:08)
[2018-01-08] MEDS: KETOROLAC TROMETHAMINE 15 MG/ML VIAL IV. SCH ×2 (13:46→20:03)
[2018-01-08] MEDS: ACETAMINOPHEN 500 MG TAB PO SCH (15:46)
[2018-01-08] MEDS: FERROUS GLUCONATE 324 MG TAB PO SCH (17:42)
[2018-01-08] MEDS: CEFAZOLIN IV 2,000 MG in SYRINGE 0 ML IV SCH (18:18)
[2018-01-08] MEDS: DOCUSATE SODIUM 100 MG CAP PO SCH (20:51)
[2018-01-08] MEDS: ASPIRIN 81 MG ECTAB PO SCH (20:51)
[2018-01-09] VITALS (7 sets, daily range): BP systolic 119–152; BP diastolic 74–87; PULSE 80–100; TEMP 36.5–36.7; O2SAT 93–97
[2018-01-09] MEDS: ACETAMINOPHEN 500 MG TAB PO SCH ×4 (00:17→23:27)
[2018-01-09] MEDS: KETOROLAC TROMETHAMINE 15 MG/ML VIAL IV. SCH ×2 (02:35→08:20)
[2018-01-09] MEDS: CEFAZOLIN IV 2,000 MG in SYRINGE 0 ML IV SCH (02:35)
[2018-01-09 07:18] LABS: HEMATOCRIT 33.2 % (42-52); HEMOGLOBIN 10.9 g/dL (14.0-18.0); MEAN CELL VOLUME 86.5 fL (80-100); MEAN CORPUSCULAR HEMOGLOBIN 28.4 pg (25-34); MEAN CORPUSCULAR HGB CONC 32.8 g/dl (32-36); MEAN PLATELET VOLUME 9.7 fL (7.4-10.4); PLATELET COUNT 215 K/uL (130-400); RED CELL DISTRIBUTION WIDTH CV 15.3 % (11.5-14.5); WHITE BLOOD COUNT 19.24 K/uL (4.8-10.8)
[2018-01-09] MEDS ORDERED: DEXAMETHASONE INJ 10 MG in SYRINGE 0 ML IV SCH (07:30)
[2018-01-09 07:39] LABS: CALCIUM 8.3 mg/dl (8.5-10.1); CREATININE 1.1 mg/dl (0.60-1.40); POTASSIUM 4.2 mmol/L (3.5-5.1)
[2018-01-09] MEDS: PANTOprazole SOD 40 MG TAB PO SCH (08:21)
[2018-01-09] MEDS: MULTIVITAMIN TAB PO SCH (08:22)
[2018-01-09] MEDS: DOCUSATE SODIUM 100 MG CAP PO SCH ×2 (08:22→21:18)
[2018-01-09] MEDS: ASPIRIN 81 MG ECTAB PO SCH ×2 (08:22→21:18)
[2018-01-09] MEDS: FERROUS GLUCONATE 324 MG TAB PO SCH ×3 (08:22→17:50)
[2018-01-09] MEDS: D5W AND 1/2NSS + 20MEQ KCL 1,000 ML IV SCH (08:23)
--- NOTE | 2018-01-09 08:42 | Orthopedic Progress Note ---
Orthopedic Progress Note Date of Service Jan 09, 2018. Subjective Post OP Day: 1 Reports: feeling well, pain controlled w PO medications, Denies: complaints, chest pain, SOB, nausea / vomiting, light headedness, calf pain Objective calves soft nontender, N/V intact, capillary refill less than 2 sec., dressing C /D/I, A&O x3, toes mobile, hemovac drainage (350/300) Date Time Temp Pulse Resp B/P (MAP) Pulse Ox O2 Delivery O2 Flow Rate FiO2 01/09/18 08:18 96 Room Air 01/09/18 08:02 36.5 92 16 132/76 (94) 96 Room Air 01/09/18 02:30 36.7 92 16 119/74 (89) 93 Room Air 01/09/18 00:10 96 Room Air 01/08/18 23:30 37.0 105 16 112/69 (83) 93 Room Air 01/08/18 20:39 108 18 109/67 (81) 93 Room Air 01/08/18 15:38 Nasal Cannula 2.0 01/08/18 15:24 36.6 99 16 113/69 (84) 93 Nasal Cannula 2.0 01/08/18 14:20 36.6 100 16 134/74 (94) 95 Nasal Cannula 2.0 01/08/18 13:20 36.4 102 16 126/82 (97) 93 Nasal Cannula 2.0 01/08/18 12:53 36.6 97 19 124/82 (96) 96 Nasal Cannula 3.0 01/08/18 12:20 Nasal Cannula 2.0 01/08/18 12:20 Nasal Cannula 2.0 01/08/18 12:20 36.7 94 18 129/83 (98) 98 Nasal Cannula 2.0 01/08/18 11:55 36.6 87 16 119/72 97 Nasal Cannula 2 01/08/18 11:45 89 16 118/80 94 Nasal Cannula 2 01/08/18 11:35 90 16 128/81 94 Nasal Cannula 2 01/08/18 11:25 87 16 126/79 98 Oxymask 10 01/08/18 11:16 36.8 91 16 132/82 99 Oxymask 10 Laboratory Results 24 Hours: Test 01/09/18 06:58 Hematocrit 33.2 % Hemoglobin 10.9 g/dL Assessment & Plan Assessment: POD#1 S/P Right TKA Plan: Medical Management DVT - ASA PT/OT Discharge - Home OPPT
--- NOTE | 2018-01-09 11:10 | Anesthesiology Progress Note ---
Anesthesia Post Op Note Date & Time Jan 09, 2018 at 11:09 Vital Signs Pain Intensity: 2.0 Vital Signs Past 12 Hours Date Time Temp Pulse Resp B/P (MAP) Pulse Ox O2 Delivery O2 Flow Rate FiO2 01/09/18 08:18 96 Room Air 01/09/18 08:02 36.5 92 16 132/76 (94) 96 Room Air 01/09/18 07:25 Room Air 01/09/18 02:30 36.7 92 16 119/74 (89) 93 Room Air 01/09/18 00:10 96 Room Air 01/08/18 23:30 37.0 105 16 112/69 (83) 93 Room Air Notes Mental Status: alert / awake / arousable, participated in evaluation Pt Amnestic to Procedure: Yes Nausea / Vomiting: adequately controlled Pain: adequately controlled Airway Patency, RR, SpO2: stable & adequate BP & HR: stable & adequate Hydration State: stable & adequate Anesthetic Complications: no major complications apparent
[2018-01-09] MEDS: CeleBREX 200 MG CAP PO SCH (21:19)
[2018-01-10 06:35] VITALS: BP 143/84; PULSE 95; TEMP 36.5; O2SAT 97
[2018-01-10] MEDS: ACETAMINOPHEN 500 MG TAB PO SCH (07:34)
[2018-01-10] MEDS: CeleBREX 200 MG CAP PO SCH (07:34)
[2018-01-10] MEDS: PANTOprazole SOD 40 MG TAB PO SCH (07:34)
[2018-01-10] MEDS: MULTIVITAMIN TAB PO SCH (07:34)
[2018-01-10] MEDS: FERROUS GLUCONATE 324 MG TAB PO SCH (07:35)
[2018-01-10] MEDS: DOCUSATE SODIUM 100 MG CAP PO SCH (07:35)
[2018-01-10] MEDS: ASPIRIN 81 MG ECTAB PO SCH (07:50)
[2018-01-10 09:40] VITALS: BP 143/84; PULSE 95; TEMP 36.5; O2SAT 97
--- NOTE | 2018-01-10 09:45 | Orthopedic Progress Note ---
Orthopedic Progress Note Date of Service Jan 10, 2018. Subjective Post OP Day: 2 Reports: feeling well, pain controlled w PO medications, Denies: complaints, chest pain, SOB, nausea / vomiting, light headedness, calf pain Objective calves soft nontender, N/V intact, capillary refill less than 2 sec., dressing C /D/I, A&O x3, toes mobile SILVERLON IN TACT Date Time Temp Pulse Resp B/P (MAP) Pulse Ox O2 Delivery O2 Flow Rate FiO2 01/10/18 09:40 36.5 95 18 97 Room Air 01/10/18 07:25 Room Air 01/10/18 06:35 36.5 95 18 143/84 (103) 97 Room Air 01/10/18 00:10 Room Air 01/09/18 23:22 36.6 100 18 148/86 (106) 96 Room Air 01/09/18 15:55 Room Air 01/09/18 15:14 36.5 100 18 141/87 (105) 95 Room Air 01/09/18 12:16 36.7 80 15 152/82 (105) 97 Room Air Assessment & Plan Assessment: POD#2 S/P Right TKA Plan: Medical Management DVT - ASA PT/OT Discharge - Home OPPT TODAY Attending Addendum: I have seen and examined the patient, and agree with JENNIFER Nolen's assessment and plan. I am covering Orthopedic Surgery call for Dr. Dailey, who is unavailable. Gabriel Delgadillo MD
[2018-01-10] MEDS ORDERED: ONDA8TAB6 PO (09:49)
[2018-01-10] MEDS ORDERED: ACET-24 PO (09:49)
[2018-01-10] MEDS ORDERED: CLB200 PO (09:49)
[2018-01-10] MEDS ORDERED: ASPEC81 PO (09:49)
[2018-01-10] MEDS ORDERED: RXC5 PO (09:49)
--- NOTE | 2018-01-10 09:51 | Discharge Instructions ---
Discharge Instructions Date of Service Jan 10, 2018. Admission Reason for Admission: Right Knee Osteoarthritis Discharge Discharge Diagnosis / Problem: RIGHT TKA Discharge Goals Goal(s): Improve function Activity Recommendations Activity Limitations: as noted below . Instructions / Follow-Up Instructions / Follow-Up ACTIVITY RECOMMENDATIONS: SELF CARE INSTRUCTIONS AFTER TOTAL KNEE REPLACEMENT A. You may need to continue a physical therapy program after discharge from the hospital. There are several options available to you. Your doctor will assist you in selecting the best one for you. 1. An out-patient facility 2 to 3 times a week for therapy or home therapy. 2. Continue working on all exercises taught to you in the hospital. Your goals should be to increase bending of your knee to 90 degrees and beyond and to fully straighten your knee. B. You may progress at your own pace from walking with a walker or crutches to a cane; then to no assistive devices. C. Make walking a part of your daily routine. Be up as much as comfortable with rest periods throughout the day. Rest with leg elevation is very important. Use the ice wrap frequently for the first 3-4 weeks. D. There are no restrictions on activities. You may ride in a car, shop, participate in computer systems analyst and all social activities. E. Wear the long elastic stockings (RADHA hose) 20 hours a day for 2 weeks after surgery. They can be removed several times a day for laundering and for a bath. F. You may shower, no tub baths until cleared by your doctor. SPECIAL CARE INSTRUCTIONS: VERY IMPORTANT TO READ AND REVIEW A. There are a few signs you need to watch for after you are home. Call [facility] if you notice any of the followin. Increased severe knee pain. Some pain is expected especially when you exercise. 2. Increased swelling in your leg or knee; pain or swelling of the calf muscle in either lower leg. 3. Any fluid drainage from the incision. 4. Shortness of breath or chest pain. B. Please call [facility] at if you have any concerns or questions about your operation or recovery. The doctor or his nurse will return your call promptly. C. You must take antibiotics before dental work, bladder, bowel or other surgery. Your doctor will provide you with a permanent care to carry describing this precaution. IMPORTANT: * REMEMBER TO TAKE ASPIRIN, 81 MG, TWICE DAILY FOR 4 WEEKS UNLESS OTHERWISE DIRECTED. THIS IS YOUR BLOOD THINNER. * HIGH RISK PATIENTS MAY BE PRESCRIBED A STRONGER BLOOD THINNER. THIS WILL BE PROVIDED AT DISCHARGE. * CALL IF INCREASED PAIN, REDNESS, DRAINAGE OR FEVER GREATER THAT 101. * WEAR RADHA HOSE 20 HOURS PER DAY FOR 2 WEEKS. * YOU MAY HAVE A LARGE BAND-AID LIKE DRESSING (SILVERON). THIS WILL REMAIN ON YOUR INCISION FOR 7 DAYS, THEN CAN BE REMOVED. IF INCISION IS LEAKING THROUGH DRESSING, CALL THE OFFICE . FOLLOW UP VISIT: If appointment is not already scheduled: Please call [facility] to make a follow-up appointment for 2 weeks after your surgery at . Current Hospital Diet Patient's current hospital diet: Regular Diet Discharge Diet Recommended Diet: Regular Diet Procedures Procedures Performed: Right Total Knee Arthroplasty Pending Studies Studies pending at discharge: no Laboratory Results Hemoglobin A1c Test 11/26/17 12:28 Range/Units Estimated Average Glucose 94 mg/dl Hemoglobin A1c 4.9 4.5-5.6 % Medical Emergencies . Who to Call and When: Medical Emergencies: If at any time you feel your situation is an emergency, please call 911 immediately. . Non-Emergent Contact Non-Emergency issues call your: Primary Care Provider . "Provider Documentation" section prepared by Rajat Nolen. . VTE Core Measure Inpt VTE Proph given/why not?: Other Anticoagulation (ASA), T.E.D. Stockings, SCD's [place] Drug Monitoring Program Search Results: patient reviewed within database, no issues identified
== END 2018-01-10 11:34 | disposition home or self-care (01) | DRG 470 ==
LOC: C.ACU 07:33 → C.3E 09:00 → ENRESERV 12:02
PROC: 0SRC0J9 Replacement of Right Knee Joint with Synthetic Substitute, Cemented, Open Approach (ICD-10-PCS; principal; 2018-01-10)
DX: M17.11 Unilateral primary osteoarthritis, right knee (principal); Z96.652 Presence of left artificial knee joint; Z72.89 Other problems related to lifestyle; Z79.1 Long term (current) use of non-steroidal anti-inflammatories (NSAID); Z79.899 Other long term (current) drug therapy; Z88.0 Allergy status to penicillin